=== PATIENT | female | born 1990 | race African-American/Black ===

== ENCOUNTER 2019-03-29 08:34 | Emergency (ER) | payer OTHER ==
[2019-03-29] MEDS ORDERED: ALBUTEROL SO4 2.5/IPRATROPIUM 0.5 INH SOL 3 ML VIAL.NEB. NEB ONE ×2 (08:43→10:18)
[2019-03-29 09:08] VITALS: BMI 31.6
--- NOTE | 2019-03-29 10:17 | PDOC ---
History of Present Illness - General Chief Complaint: Respiratory Stated Complaint: COUGH/SOB Time Seen by Provider: 03/29/19 09:00 History Source: Patient Exam Limitations: No Limitations Past History - Travel Traveled outside of the country in the last 30 days: No Close contact w/someone who was outside of country & ill: No - Past Medical History Allergies/Adverse Reactions: Allergies Allergy/AdvReac Type Severity Reaction Status Date / Time No Known Allergies Allergy Verified 03/29/19 10:46 Home Medications: Ambulatory Orders Albuterol Sulfate Inhaler - [Ventolin Hfa Inhaler -] 1 - 2 inh PO QID 03/29/19 Prednisone 40 mg PO DAILY 03/29/19 COPD: No - Psycho Social/Smoking Cessation Hx Smoking History: Current some day smoker Number of Cigarettes Smoked Daily: 2 Information on smoking cessation initiated: No Review of Systems - Review of Systems Able to Perform ROS?: Yes Comments:: 03/29/19 10:13 CONSTITUTIONAL: Present: Fever, general weakness, malaise. Absent: chills, diaphoresis, loss of appetite HEENT: Present: Throat pain absent: rhinorrhea, nasal congestion, throat pain, throat swelling, difficulty swallowing, mouth swelling, ear pain, eye pain, visual Changes CARDIOVASCULAR: Absent: chest pain, loss of consciousness, palpitations, irregular heart rate, peripheral edema RESPIRATORY: Present: Cough, shortness of breath, wheezing absent: cough, shortness of breath , dyspnea with exertion, orthopnea, wheezing, stridor, hemoptysis GASTROINTESTINAL: Absent: abdominal pain, abdominal distension, nausea, vomiting, diarrhea, constipation, melena, hematochezia GENITOURINARY: Absent: dysuria, frequency, urgency, hesitancy, hematuria, flank pain, genital pain MUSCULOSKELETAL: Absent: myalgia, arthralgia, joint swelling SKIN: Absent: rash, itching, pallor HEMATOLOGIC/IMMUNOLOGIC: Absent: easy bleeding, easy bruising, lymphadenopathy, frequent infections ENDOCRINE: Absent: unexplained weight gain, unexplained weight loss, heat intolerance, cold intolerance NEUROLOGIC: Absent: headache, focal weakness or paresthesias, dizziness, unsteady gait, seizure, mental status changes, bladder or bowel incontinence PSYCHIATRIC: Absent: anxiety, depression, suicidal or homicidal ideation, hallucinations. Is the patient limited Citizen Of [place] proficient: No *Physical Exam - Vital Signs Last Vital Signs Temp Pulse Resp BP Pulse Ox 100.1 F H 103 H 18 106/64 100 03/29/19 08:35 03/29/19 08:35 03/29/19 08:35 03/29/19 08:35 03/29/19 08:35 - Physical Exam Comments: 03/29/19 10:13 Brief physical exam performed. General: Awake alert and oriented x3, patient sitting in wheelchair Lungs: Diffuse expiratory wheezing throughout all lung walsh with fair aeration of the bases. Cough noted with deep breaths Heart: regular rate and rhythm, S1-S2 present no murmurs rubs or gallops. NEUROLOGICAL: Normal speech, normal gait. PSYCH: Normal mood, normal affect. SKIN: Warm, Dry, normal turgor, no rashes or lesions noted. ED Treatment Course - LABORATORY CBC & Chemistry Diagram: 03/29/19 10:30 03/29/19 10:30 Medical Decision Making - Medical Decision Making 03/29/19 10:15 Patient is a 28-year-old female with past medical history of asthma, who presents the ER today for 4 days of cough, sore throat, wheezing and difficulty breathing. She states that she was seen at [facility] last night and received Decadron and 4 breathing treatments. She states that they wanted to admit her for her asthma but she left AGAINST MEDICAL ADVICE as they did not have a bed for her. She reports that since leaving part of his her symptoms got worse and she is having increased difficulty breathing so she came back to the ER for further evaluation. She is never been intubated for her asthma. She has been hospitalized 8 years ago. A/P: Asthma exacerbation/URI On exam lungs with diffuse wheezing throughout all lung walsh, patient appears weak Given reports that she was to be admitted at [facility] but left AGAINST MEDICAL ADVICE, will transfer to the main ER for further work-up Labs, flu, strep throat test ordered Sign out given to FAITH Carrasco. Discharge - Discharge Information Problems reviewed: Yes Clinical Impression/Diagnosis: Influenza A - Follow up/Referral - Patient Discharge Instructions - Post Discharge Activity
[2019-03-29] MEDS ORDERED: IBUPROFEN 600 MG TABLET (FP) PO ONE (10:19)
[2019-03-29] MEDS ORDERED: SODIUM CHLORIDE 1,000 ML IV STA (10:19)
--- NOTE | 2019-03-29 11:35 | PDOC ---
*Physical Exam - Vital Signs Last Vital Signs Temp Pulse Resp BP Pulse Ox 100.1 F H 103 H 18 106/64 100 03/29/19 08:35 03/29/19 08:35 03/29/19 08:35 03/29/19 08:35 03/29/19 08:35 - Physical Exam Comments: 03/29/19 11:29 GENERAL: Well developed, well nourished. Awake and alert in mild acute distress. HEENT: Normocephalic, atraumatic. PERRLA, EOMI. No conjunctival pallor. Sclera are non-icteric. Moist mucous membranes. Oropharynx is clear. NECK: Supple. Full ROM. CARDIOVASCULAR: Regular rate and rhythm. No murmurs, rubs, or gallops. Distal pulses are 2+ and symmetric. PULMONARY: Diffuse expiratory wheeze. No rales or rhonchi. ABDOMINAL: Soft. Non-tender. Non-distended. No rebound or guarding. No organomegaly. Normoactive bowel sounds. MUSCULOSKELETAL Normal range of motion at all joints. SKIN: Warm and dry. Normal capillary refill. No rashes. No cyanosis. NEUROLOGICAL: Alert, awake, appropriate. Gait is normal without ataxia. PSYCHIATRIC: Cooperative. Good eye contact. Appropriate mood General Appearance: Yes: Nourished, Appropriately Dressed, Mild Distress ED Treatment Course - LABORATORY CBC & Chemistry Diagram: 03/29/19 13:00 03/29/19 13:00 - ADDITIONAL ORDERS Additional order review: 03/29/19 10:30 RBC Cancelled MCV Cancelled MCHC Cancelled RDW Cancelled MPV Cancelled Neutrophils % Cancelled Lymphocytes % Cancelled Monocytes % Cancelled Eosinophils % Cancelled Basophils % Cancelled - Medications Given in the ED: ED Medications Discontinued Medications Generic Name Dose Route Start Last Admin Trade Name Freq PRN Reason Stop Dose Admin Albuterol/Ipratropium 3 amp 03/29/19 10:18 03/29/19 10:30 Duoneb - NEB 03/29/19 10:19 3 amp ONCE ONE Administration Ibuprofen 600 mg 03/29/19 10:19 03/29/19 10:40 Motrin - PO 03/29/19 10:20 600 mg ONCE ONE Administration Medical Decision Making - Medical Decision Making 03/29/19 10:30 I resumed care of this 28-year-old female with history of asthma presented with complaint of 4-day history of persistent cough, nasal congestion, runny nose, body ache and sore throat. [facility] and patient signed the AMA due to being there for too long. Patient was discharged home on p.o. prednisone and Ventolin but patient never picked up from pharmacy. Patient reported weakness, body aches and fatigue. Patient did not take anything for symptoms Rapid strep, rapid flu test ordered, CBC, chemistry and cardiac profile lab ordered. Checks x-ray ordered to rule out chest pathology. IV hydration with 1 L normal saline ordered for hydration. DuoNeb with Atrovent ipratropium bromide ordered for wheezing 03/29/19 11:32 Rapid flu positive for influenza A. Rapid strep negative. CBC and chemistry lab with no acute pathology. Patient reported living in a senior care and homeless with 2 children and can now go with a senior care with influenza. Patient has nowhere else to live. sheet metal production worker contacted for possible social admission 03/29/19 14:39 Called and spoke to patient regional clinical director Destiny will report patient come to return to senior care and placed in a separate quarters. Plan discussed with patient and patient be discharged home on Medrol Neo for 5 days for malaise and nasal exacerbation with Tessalon Perles as needed for cough with Singulair for to help with bronchospasm with strict follow-up Discharge - Discharge Information Problems reviewed: Yes Clinical Impression/Diagnosis: Influenza A, Weakness generalized, Lives in homeless senior care Condition: Stable Disposition: HOME - Admission No - Additional Discharge Information Prescriptions: Benzonatate [Tessalon Pearls -] 100 mg PO Q8H PRN #21 capsule PRN Reason: Cough Methylprednisolone [Medrol Dose Neo] 4 mg PO ASDIR #21 tablet Montelukast Na [Singulair -] 10 mg PO DAILY #7 tablet - Follow up/Referral - Patient Discharge Instructions Patient Printed Discharge Instructions: Influenza, DI for Asthma -- Adult Additional Instructions: Your blood work was normal. Your test shows influenza which is likely the cause of your symptoms. Take prescribed medication as prescribed. Increase fluid intake. Alternate with Tylenol and Motrin as needed for fever. Follow- up with primary care Due to having influenza, refrain from being around young children or children especially unvaccinated ones for the the 2-4 days - Post Discharge Activity
[2019-03-29 11:38] LABS: ALBUMIN 4.1 g/dl (3.4-5.0); BILIRUBIN,TOTAL 0.4 mg/dL (0.2-1); CALCIUM 8.9 mg/dL (8.5-10.1); CREATININE 0.9 mg/dL (0.55-1.3); POTASSIUM 4.6 mmol/L (3.5-5.1); TOT PROT 8.1 g/dl (6.4-8.2)
[2019-03-29 11:59] VITALS: BP 116/59; PULSE 99; TEMP 99.4
--- NOTE | 2019-03-29 13:22 | PDOC ---
*Physical Exam - Vital Signs Last Vital Signs Temp Pulse Resp BP Pulse Ox 99.4 F 99 H 15 116/59 L 98 03/29/19 11:58 03/29/19 11:58 03/29/19 11:58 03/29/19 11:58 03/29/19 13:05 ED Treatment Course - LABORATORY CBC & Chemistry Diagram: 03/29/19 13:00 03/29/19 13:00 - ADDITIONAL ORDERS Additional order review: Laboratory Results 03/29/19 10:30 Sodium 136 Potassium 4.6 Chloride 105 Carbon Dioxide 25 Anion Gap 6 L BUN 11.0 Creatinine 0.9 Est GFR (CKD-EPI)AfAm 99.44 Est GFR (CKD-EPI)NonAf 85.80 Random Glucose 86 Calcium 8.9 Total Bilirubin 0.4 AST 36 ALT 24 Alkaline Phosphatase 81 Total Protein 8.1 Albumin 4.1 03/29/19 10:30 RBC Cancelled MCV Cancelled MCHC Cancelled RDW Cancelled MPV Cancelled Neutrophils % Cancelled Lymphocytes % Cancelled Monocytes % Cancelled Eosinophils % Cancelled Basophils % Cancelled - Medications Given in the ED: ED Medications Discontinued Medications Generic Name Dose Route Start Last Admin Trade Name Chavaq PRN Reason Stop Dose Admin Albuterol/Ipratropium 3 amp 03/29/19 10:18 03/29/19 10:30 Duoneb - NEB 03/29/19 10:19 3 amp ONCE ONE Administration Ibuprofen 600 mg 03/29/19 10:19 03/29/19 10:40 Motrin - PO 03/29/19 10:20 600 mg ONCE ONE Administration Medical Decision Making - Medical Decision Making 03/29/19 13:17 Ms Lindo is a 28 yo F h/o asthma, presenting with a complaint of 4 days of cough, nasal congestion, myalgias, sore throat She was seen at an OSH where she was discharged on prednisone and nebs Pt did not get any of her medications from the pharmacy Patient returns ot the ER reporting weakness, body aches and fatigue. On examination Pt is awake and alert Pt is weak appearing RRR Bilateral wheezing noted Pt seen by Midlevel Provider under my direct supervision Pt interviewed and examined Ancillary studies reviewed I agree with plan as outlined by Midlevel Provider Pt can not return to her pen[facility]ent[facility] with Flu + test DuoNeb with Atrovent ipratropium bromide ordered for wheezing 03/29/19 14:28 Laboratory Tests 03/29/19 03/29/19 13:00 13:00 WBC 10.2 H Hgb 13.0 Hct 38.7 Plt Count 203 BUN 9.3 Creatinine 0.8 Call placed to pt penitentiary She has a room separate from the other residents, so therefore should not be an infectious source to other residents Pt children will be cared for by their grandparents CXR- no infiltrate No hypoxia No leukocytosis Will d/c to home Follow up with PMD Monitor for difficulty breathing Fill prescriptions for nebs Pt outside of the window for Tamiflu Discharge - Discharge Information Problems reviewed: Yes Clinical Impression/Diagnosis: Influenza A, Weakness generalized, Lives in homeless penitentiary Condition: Stable Disposition: HOME - Additional Discharge Information Prescriptions: Benzonatate [Tessalon Pearls -] 100 mg PO Q8H PRN #21 capsule PRN Reason: Cough Methylprednisolone [Medrol Dose Neo] 4 mg PO ASDIR #21 tablet Montelukast Na [Singulair -] 10 mg PO DAILY #7 tablet - Follow up/Referral - Patient Discharge Instructions Patient Printed Discharge Instructions: Influenza, DI for Asthma -- Adult Additional Instructions: Your blood work was normal. Your test shows influenza which is likely the cause of your symptoms. Take prescribed medication as prescribed. Increase fluid intake. Alternate with Tylenol and Motrin as needed for fever. Follow- up with primary care Due to having influenza, refrain from being around young children or children especially unvaccinated ones for the the 2-4 days - Post Discharge Activity
[2019-03-29 13:23] LABS: BASO % 0.4 % (0-2.0); EOS % 2.8 % (0-4.5); HEMATOCRIT 38.7 % (32.4-45.2); LYMPH % 8.4 % (8-40); MCH 31.9 pg (25.7-33.7); MCHC 33.5 g/dl (32.0-36.0); MEAN CELL VOLUME 95.2 fl (80-96); MEAN PLT VOLUME 8.9 fl (7.5-11.1); MONO % 12.7 % (3.8-10.2); NEUT % 75.7 % (42.8-82.8); PLATELET COUNT 203 K/MM3 (134-434); RBC 4.07 M/mm3 (3.60-5.2); WHITE BLOOD COUNT 10.2 K/mm3 (4.0-10.0)
[2019-03-29 13:50] LABS: ALBUMIN 3.9 g/dl (3.4-5.0); BILIRUBIN,TOTAL 0.2 mg/dL (0.2-1); BLOOD UREA NITROGEN 9.3 mg/dL (7-18); CALCIUM 8.7 mg/dL (8.5-10.1); CREATININE 0.8 mg/dL (0.55-1.3); POTASSIUM 3.6 mmol/L (3.5-5.1); TOT PROT 7.1 g/dl (6.4-8.2)
== END 2019-03-29 15:12 | disposition home or self-care (01) ==
LOC: JER 08:34
PROC: 3E0337Z Introduction of Electrolytic and Water Balance Substance into Peripheral Vein, Percutaneous Approach (ICD-10-PCS; principal; 2019-03-29)
PROC: 3E0F7GC Introduction of Other Therapeutic Substance into Respiratory Tract, Via Natural or Artificial Opening (ICD-10-PCS; 2019-03-29)
DX: J09.X2 Influenza due to identified novel influenza A virus with other respiratory manifestations (principal); Z72.0 Tobacco use
CPT/HCPCS: 36415; 71045-TC-FY; 80053; 85025; 87070; 87804; 87880; 99284-25; J7030